=== PATIENT | female | born 1985 | race Caucasian/White ===

== ENCOUNTER → 2023-11-08 08:05 | Outpatient (REF) | payer OTHER, SELFPAY | LOC: HWRCS 08:05 | PROVIDERS: ATTENDING PHYSICIAN Nurse Practitioner Adult Health | DX: I10 Essential (primary) hypertension (principal); R00.1 Bradycardia, unspecified; R40.4 Transient alteration of awareness | CPT/HCPCS: 93306 ==

== ENCOUNTER → 2023-11-17 08:28 | Outpatient (REF) | payer OTHER, SELFPAY | LOC: RCS 08:28 | PROVIDERS: ATTENDING PHYSICIAN Nurse Practitioner Adult Health | DX: R00.1 Bradycardia, unspecified (principal) | CPT/HCPCS: 93225; 93226 ==

== ENCOUNTER → 2024-02-04 13:17 | Outpatient (REF) | payer OTHER, SELFPAY | LOC: HWWDC 13:17 | PROVIDERS: ATTENDING PHYSICIAN Obstetrics & Gynecology; FAMILY PHYSICIAN Nurse Practitioner Adult Health | DX: Z12.31 Encounter for screening mammogram for malignant neoplasm of breast (principal) | CPT/HCPCS: 77063; 77067 ==

== ENCOUNTER → 2024-04-28 12:49 | Outpatient (REF) | payer OTHER, SELFPAY | LOC: RAD 12:49 | PROVIDERS: ATTENDING PHYSICIAN Nurse Practitioner Adult Health | DX: R17 Unspecified jaundice (principal) | CPT/HCPCS: 76700 ==

== ENCOUNTER 2024-05-05 13:43 | Emergency (ER) | payer OTHER, SELFPAY ==
[2024-05-05 13:45] VITALS: BP 135/81
--- NOTE | 2024-05-05 14:17 | ED.GENMED ---
History of Present Illness
General
Chief Complaint: Back Pain
Source: patient
Exam Limitations: none
Time Seen by Provider: 05/05/24 13:53
Nursing documentation reviewed up to this point in time: agreed with
History of Present Illness
History of Present Illness:
Patient is a 38-year-old female who presents to the ER for evaluation of low back pain. She has had this back pain since November. She was seen in March by orthopedics and has an MRI scheduled for Wednesday. She reports pain is across the low back and
she does feel radiate to her right leg. Back in March she was given a Medrol Dosepak and meloxicam which did seem to take the pressure off. She presents today because of increasing back pain and reports she does not feel that she can wait until
Wednesday. She denies any loss of bowel or bladder. Denies any weakness in the lower extremities. She does have chronic intermittent numbness in her upper lower extremities is being worked up by neurologist she has had MRIs for this. MS is a
consideration but there is no clear diagnosis at this point. The numbness is not new
She does report for past 2 weeks she has had urinary urgency . denies nausea/vomiting /fevers . No recent back procedures.
Past History
Past History
ED Past Medical History: Other (Preeclampsia)
ED Past Surgical History: Gynecological (LEEP)
Social History
Tobacco: Non-smoker
Alcohol: None
Personal:
Living: with family
Family History
Family History: Other (Noncontributory)
Review of Systems
Review of Systems
Allergies reviewed?: Yes
All Other Systems: ROS reviewed and negative except as documented in HPI and ROS
Constitutional: Reports no symptoms; Denies fever, fatigue or chills
Respiratory: Reports no symptoms
Cardiac: Reports no symptoms
ABD/GI: Reports no symptoms; Denies nausea or vomiting
: Reports no symptoms; Denies urgency or discharge
Musculoskeletal: Reports back pain (low back pain )
Skin: Reports no symptoms
Neurological: Reports numbness (chronic numbness in arms /legs (for yrs ) )
Psychiatric: Reports no symptoms
Phy Exam
General Physical Exam
General Presentation: no apparent distress
General age: appears stated age
General Skin: warm and dry
General Habitus: normal
General Mental: alert
General Hydration: appears well hydrated
Neurological Exam
Neurological Exam: alert, no motor deficits, normal reflexs and other (Normal distal sensation normal bilateral dorsiflexion plantarflexion)
Musculoskeletal Exam
Musculoskeletal Exam: other (Normal inspection to lower back, mild non specific tenderness to lumbar muscle region on cva tenderness )
Skin Exam
Skin Exam: normal color and warm/dry
Psychiatric Exam
Psychiatric Exam: normal mood/affect
Course
Orders/Labs/Results
Orders:
Orders
05/05/24 14:14
Dexamethasone Sod Phosphate [Decadron] 10 mg IM NOW STA
Test Result ONCE
05/05/24 14:16
Acetaminophen [Tylenol] 1,000 mg PO NOW STA
05/05/24 14:25
HCG, Urine Qualitative Screen Urgent
Date Specimen was Collected: 05/05/24
Time Specimen was Collected: 14:21
Comment: ADD ON
UA Reflex to Culture [Urinalysis Reflex To Culture] Urgent
Date Specimen was Collected: 05/05/24
Time Specimen was Collected: 14:21
05/05/24 14:29
Add On- LAB Urgent
Comments:: urine sent to lab
Tests Added?: hcg qualitative/urine
Vital Signs
Initial and Last Documented VS:
Initial Vital Signs
Temp Pulse Resp BP Pulse Ox
98.1 F 64 18 135/81 100
05/05/24 13:45 05/05/24 13:45 05/05/24 13:45 05/05/24 13:45 05/05/24 13:45
Last Documented Vital Signs
Temp Pulse Resp BP Pulse Ox
98.1 F 64 18 135/81 100
05/05/24 13:45 05/05/24 13:45 05/05/24 13:45 05/05/24 13:45 05/05/24 13:45
MDM/Problems Addressed
Differential Diagnosis Includes:
Not limited sciatica / back pain
MDM/Problems Addressed:
Symptoms are consistent with sciatica, patient has had intermittent back pain for the past several months since the spring has been seen by orthopedics and has an MRI scheduled Wednesday. She was on steroid in March which did seem to improve her
symptoms. She has an MRI scheduled Wednesday but present worsening low back pain. She just feels that it is getting difficult to do everyday activities. She does complain of pain rating down her right leg but denies any loss of bowel or bladder.
She thought she had some urinary urgency however urinalysis is negative no fevers. She has a normal neurological exam normal reflexes normal strength.
Patient was given 1 dose of IM Decadron here will DC with oral steroid taper and lidocaine patch. Discussed with patient to have her MRI on Wednesday and then follow-up with orthopedics she has seen [facility].
*Critical Care Note
Total Time (30-74mins, 75-104mins- exclusive of procedures): Not Applicable
ED Attending Note
-
Portions of this chart may have been created with voice recognition software.� Occasional wrong word or��sound alike� substitutions may have occurred due to the inherent limitations of voice recognition software.
Discharge Plan
Departure
Patient Disposition: Home (Routine Discharge)
Date of Disposition: 05/05/24
Time of Disposition: 15:10
Patient with high blood pressure during this ER visit?: Yes
Condition: Fair
Covid-19: Not Applicable
Discharge Problem:
Low back pain, Sciatica
Instructions: Low Back Pain (DC), Sciatica (DC)
Prescriptions:
New
prednisone 10 mg Tablet
See Rx Instructions .ROUTE .COMPLEX Qty: 30 0RF
Rx Instructions:
Take By Mouth:
40 mg daily x3 days, 30 mg daily x3 days,
20 mg daily x3 days, 10 mg daily x3 days.
lidocaine 5 % adhesive patch,medicated
1 patch topical DAILY Qty: 15 0RF
Rx Instructions:
remove after 12 hrs
No Action
vit no.[id number] [ Vitamin] 1 EACH tablet
1 ea PO DAILY
sennosides-docusate sodium 1 TABLET tablet
1 tab PO DAILYPRN PRN (Reason: constipation) Qty: 0 0RF
ibuprofen 600 MG tablet
400 mg PO Q4HPRN PRN (Reason: moderate pain/cramps) Qty: 0 0RF
Referrals:
Nely Sneed CRNP [Family Provider] -
Activity Restrictions/Additional Instructions:
As discussed a prescription for steroid taper was sent to your pharmacy take as directed starting tomorrow. You may take Tylenol every 4-6 hours as needed. Also a prescription for lidocaine patch was sent to your pharmacy take as directed.
Follow-up on Wednesday with your MRI and outpatient Orthopedics Return if any worsening of symptoms if increased pain weakness lower extremities , loss of bowel or bladder or any further concerns.
Interventions
Interventions:
*Risk Screen - Suicide Last Done: 05/05/24 13:45
*General Assessment Last Done: 05/05/24 13:45
*Neglect/Abuse Screening Last Done: 05/05/24 13:45
ED-Musculoskeletal Assessment Last Done: 05/05/24 13:54
Discharge Date and Time
Print Language: GIBRALTARIAN
[2024-05-05] MEDS: DECADRON 10 MG IM (14:22)
[2024-05-05] MEDS: TYLENOL 1000 MG PO (14:22)
[2024-05-05 14:52] LABS: Urine Albumin Negative (Neg - Trace); Urine Bilirubin Negative (Negative); Urine Character Clear (Clear); Urine Color Yellow; Urine Glucose Negative (Negative); Urine Ketone Negative (Negative); Urine Leukocyte Negative (Negative); Urine Nitrite Negative (Negative); Urine Occult Blood Negative (Negative); Urine Urobilinogen Negative (Neg - 1+)
[2024-05-05 15:01] LABS: HCG, Urine Qualitative Screen Negative
== END 2024-05-05 15:19 | disposition home or self-care (01) ==
LOC: EMR 13:43
PROVIDERS: Nurse Practitioner; EMERGENCY PHYSICIAN Emergency Medicine; FAMILY PHYSICIAN Nurse Practitioner Adult Health
DX: M54.40 Lumbago with sciatica, unspecified side (principal); R03.0 Elevated blood-pressure reading, without diagnosis of hypertension
CPT/HCPCS: 99284; 96372; 81003; 81025

== ENCOUNTER → 2024-05-25 08:46 | Outpatient (REF) | payer OTHER, SELFPAY ==
[2024-05-25 11:44] LABS: ALT (SGPT) 13 U/L (0-35); AST (SGOT) 20 U/L (14-36); Albumin 4.6 g/dl (3.5-5.0); Alkaline Phosphatase 55 U/L (38-126); Direct Bilirubin 0.3 mg/dl (0.0-0.4); GGTP 18 U/L (12-43); Total Bilirubin 1.4 mg/dl (0.2-1.3); Total Protein 7.1 g/dl (6.3-8.2)
[2024-05-25 18:45] LABS: Hepatitis B Surface Antigen Negative (Negative)
[2024-05-25 18:52] LABS: Hepatitis A IgM Antibody Negative (Negative); Hepatitis B Core Ab, IgM Negative (Negative)
[2024-05-25 19:01] LABS: Hepatitis C Antibody Negative (Negative)
== END ==
LOC: REG 08:46
PROVIDERS: ATTENDING PHYSICIAN Nurse Practitioner Adult Health
DX: R17 Unspecified jaundice (principal)
CPT/HCPCS: 36415; 80076; 82977; 86705; 86709; 86803; 87340; 87522

== ENCOUNTER → 2024-06-07 09:55 | Outpatient (REF) | payer OTHER, SELFPAY | LOC: WDC 09:55 | PROVIDERS: ATTENDING PHYSICIAN Obstetrics & Gynecology; FAMILY PHYSICIAN Nurse Practitioner Adult Health | DX: R92.2 Inconclusive mammogram (principal) | CPT/HCPCS: 76641 ==

== ENCOUNTER → 2024-06-22 10:32 | Outpatient (REF) | payer OTHER, SELFPAY | LOC: HWRAD 10:32 | PROVIDERS: ATTENDING PHYSICIAN Nurse Practitioner Adult Health | DX: R10.30 Lower abdominal pain, unspecified (principal); R10.31 Right lower quadrant pain; R10.32 Left lower quadrant pain | CPT/HCPCS: 74177; Q9967 ==

== ENCOUNTER → 2025-04-02 09:57 | Outpatient (REF) | payer OTHER, SELFPAY | LOC: WDC 09:57 | PROVIDERS: ATTENDING PHYSICIAN Obstetrics & Gynecology; FAMILY PHYSICIAN Nurse Practitioner Adult Health | DX: R92.8 Other abnormal and inconclusive findings on diagnostic imaging of breast (principal) | CPT/HCPCS: 76642; 77061; 77065 ==

== ENCOUNTER → 2025-08-03 10:54 | Outpatient (REF) | payer OTHER, SELFPAY | LOC: WDC 10:54 | PROVIDERS: ATTENDING PHYSICIAN Obstetrics & Gynecology; FAMILY PHYSICIAN Nurse Practitioner Adult Health | DX: R92.333 Mammographic heterogeneous density, bilateral breasts (principal) | CPT/HCPCS: 76641 ==